=== PATIENT | female | born 1975 | race Hispanic/Latino ===

== ENCOUNTER 2018-07-07 15:57 | Outpatient (CLI) | payer BC ==
--- NOTE | 2018-07-08 11:57 | MMO ---
Bilateral MAMMO Bilat Screen [facility]DI+DEANDRA. CLINICAL HISTORY: Patient is 43 years old and is seen for screening. The patient has no family history of breast cancer. The patient has no personal history of cancer. VIEWS: The views performed were: bilateral craniocaudal with tomosynthesis and bilateral mediolateral oblique with tomosynthesis. MAMMOGRAM FINDINGS: The breasts are heterogeneously dense, which could obscure a lesion on mammography. There are benign appearing calcifications seen in both breasts. There are no suspicious masses, suspicious calcifications, or new areas of architectural distortion. IMPRESSION: THERE IS NO MAMMOGRAPHIC EVIDENCE OF MALIGNANCY. A ROUTINE FOLLOW-UP MAMMOGRAM IN 1 YEAR IS RECOMMENDED. THE RESULTS OF THIS EXAM WERE SENT TO THE PATIENT. ACR BI-RADS Category 2 - Benign finding MAMMOGRAPHY NOTE: 1. A negative mammogram report should not delay a biopsy if a dominant of clinically suspicious mass is present. 2. Approximately 10% to 15% of breast cancers are not detected by mammography. 3. Adenosis and dense breasts may obscure an underlying neoplasm.
== END 2018-07-07 15:58 | disposition home or self-care (01) ==
LOC: BICMAMMO 15:57
PROVIDERS: ATTEND Family Medicine
DX: Z12.31 Encounter for screening mammogram for malignant neoplasm of breast (principal)
CPT/HCPCS: 77063; 77067

== ENCOUNTER 2018-08-24 15:13 | Outpatient (CLI) | payer BC ==
--- NOTE | 2018-08-24 16:11 | BD ---
Exam: DEXA Bone Density 08/24/18 HISTORY: Screening for osteoporosis. Lumbar Spine: BMD (g/cm2) T-SCORE Z-SCORE L1 0.926 -0.6 -0.3 L2 0.977 -0.5 -0.2 L3 0.975 -1.0 -0.7 L4 0.930 -1.2 -0.9 L1-L4 0.951 -0.9 -0.6 Femoral Neck: 0.947 0.9 1.2 Total Femur: 1.066 1.0 1.2 Impression: Normal BMD. POS: TPC
== END 2018-08-24 15:14 | disposition home or self-care (01) ==
LOC: BICMAMMO 15:13
PROVIDERS: ATTEND Family Medicine
DX: Z13.820 Encounter for screening for osteoporosis (principal); E83.52 Hypercalcemia
CPT/HCPCS: 77080

== ENCOUNTER 2019-05-18 07:48 | Inpatient (IN) | payer BC ==
[2019-05-18] MEDS ORDERED: Lorazepam 2 MG/ML VIAL ONE ×2 (07:52→09:58)
[2019-05-18] MEDS ORDERED: Rocuronium Bromide 10 MG/ML (10ML VIAL) ONE (07:52)
[2019-05-18] MEDS ORDERED: Propofol 1,000 MG/100 ML VIAL IV ONE (07:55)
[2019-05-18] MEDS ORDERED: methylPREDNISolone Sod Succ/PF 125 MG/2 ML VIAL ONE (08:06)
[2019-05-18] MEDS ORDERED: Albuterol Sulfate 2.5 mg/3 ml Neb ONE (08:07)
[2019-05-18 08:34] LABS: Mean Corpuscular HGB CONC 32.5 g/dL (32.0-36.0); Mean Corpuscular Hemoglobin 30.3 pg (27.0-31.0); Mean Corpuscular Volume 93.1 fL (78.0-98.0); Mean Platelet Volume 9.5 fL (7.4-10.4); Platelet Count 326 thou/uL (130-400); RBC Distribution Width 12.6 % (11.5-14.5); Red Blood Cell (RBC) Count 5.29 mill/uL (4.20-5.40); White Blood Cell (WBC) Count 11.3 thou/uL (4.8-10.8)
[2019-05-18 08:36] LABS: ALT (SGPT) 23 U/L (8-55); AST (SGOT) 23 U/L (5-34); Alkaline Phosphatase 63 U/L (40-110); Anion Gap 14 mmol/L (10-20); BUN (Urea Nitrogen) 11 mg/dL (7.0-18.7); Bilirubin, Total 0.7 mg/dL (0.2-1.2); Calc. Creatinine Clearance 0 mL/min (70-130); Calcium 11.7 mg/dL (7.8-10.44); Carbon Dioxide 22 mmol/L (22-29); Chloride 107 mmol/L (98-107); Estimated GFR-MDRD 70; Globulin 4.1 g/dL (2.4-3.5); Glucose 103 mg/dL (70-105); Potassium 4.1 mmol/L (3.5-5.1); Protein, Total 9.1 g/dL (6.0-8.3); Sodium 139 mmol/L (136-145)
--- NOTE | 2019-05-18 08:55 | RAD ---
CHEST 1 VIEW: Date: 05/18/2019 HISTORY: Foreign body aspiration. COMPARISON: None. FINDINGS: Endotracheal tube is in position. Heart size is within normal limits. No confluent pneumonia or overt edema, although there are some increased bronchovascular markings, slightly more prominent in the le ft mid upper chest. No evidence for volume loss. No abnormal opaque foreign body seen. IMPRESSION: Endotracheal tube in position. Increased bronchovascular markings, slightly more prominent in the lef t upper chest. Conceivably, this could represent a small patch of aspiration pneumonia or pneumonitis . No confluent lobar pneumonia. No convincing evidence for significantly opaque foreign body. POS: TPC
[2019-05-18 08:57] LABS: Band 4 % (5-11); Eosinophils 9 % (0-10); Lymphocytes 38 % (21-51); MDiff Complete? YES; Metamyelocyte 1 % (0-0); Monocytes 4 % (0-10); Neutrophil 26 % (42-75); Reactive Lymphocytes 18 % (0-10)
[2019-05-18 09:03] LABS: Actual Bicarbonate (HCO3a) 20.9 mEq/L (22-28); Analyzer IN Cardio ER; Base Excess (BEa) -6.4 mEq/L (-2.0 to +3.0); CO2 Tension 48.4 mmHg (35.0-45.0); Calcium, Ionized 1.32 mmol/L (1.12-1.30); Carboxyhemoglobin (COHb) 0.3 gm% (0.0-3.0); Hemoglobin (Hb) 14.6 g/dL (12.0-16.0); O2 Tension (PaO2) 78.7 mmHg (80.0-100.0); Potassium - ABG Lab 2.73 mmol/L (3.70-5.30)
[2019-05-18 09:06] LABS: Puncture Site RRA; pH, Arterial 7.25 (7.35-7.45)
[2019-05-18 09:15] LABS: BHCG - Serum Negative (NEGATIVE); Pregs Control Background? CLEAR/WHITE (CLR/WHITE); Pregs Control Bar Appear? YES (CONTROL BAR)
[2019-05-18 09:29] LABS: Bacteria/HPF None Seen HPF (None Seen); Bilirubin Negative (Negative); Blood, Urine Trace (Negative); Clarity Clear (Clear); Glucose, Urine (Dipstick) 50 mg/dL (Negative); Leukocyte Negative Leu/uL (Negative); Nitrite Negative (Negative); Protein, Urine (Dipstick) 50 mg/dL (Neg-Trace); RBC/HPF 0-3 HPF (0-3); Squamous Epithelial 0-3 HPF (0-3); Urobilinogen Normal mg/dL (Less than 2); WBC/HPF 0-3 HPF (0-3)
[2019-05-18] MEDS ORDERED: Fentanyl 100 MCG/2 ML VIAL ONE (10:06)
[2019-05-18] MEDS ORDERED: Lorazepam 2 MG/ML VIAL SLOW IVP PRN (10:57)
[2019-05-18] MEDS ORDERED: Ondansetron ODT 4 MG TAB PO PRN (10:57)
[2019-05-18] MEDS ORDERED: Acetaminophen 650 MG Suppository PR PRN (10:57)
[2019-05-18] MEDS ORDERED: Labetalol HCl 100 MG/20 ML VIAL SLOW IVP PRN (10:57)
[2019-05-18] MEDS ORDERED: Ondansetron PF 4 MG/2 ML Vial IVP PRN (10:57)
[2019-05-18] MEDS ORDERED: Propofol 1,000 MG/100 ML VIAL IV PRN (11:08)
[2019-05-18] MEDS ORDERED: Ventilator Sedation Protocol 1 EACH FS ONE (11:11)
[2019-05-18] MEDS ORDERED: Fentanyl BOLUS 250 ML IVPB PRN (11:28)
[2019-05-18] MEDS ORDERED: fentaNYL Citrate/PF 2,000 MCG in Sodium Chloride 0.9% 60 ML IV SCH (11:28)
[2019-05-18] MEDS ORDERED: Morphine 2 MG/ML SYRINGE SLOW IVP PRN (11:28)
[2019-05-18] MEDS ORDERED: Propofol BOLUS 1,000 MG/100 ML VIAL IV PRN (11:28)
[2019-05-18] MEDS: Famotidine/PF 20 mg/2ml Vial SLOW IVP SCH ×2 (11:54→21:23)
[2019-05-18] MEDS: Sodium Chloride 0.9% 1,000 ML IV SCH ×2 (11:54→17:15)
[2019-05-18] MEDS: diphenhydrAMINE 50 MG/ML VIAL IVP SCH ×3 (11:54→23:53)
[2019-05-18] MEDS ORDERED: methylPREDNISolone Sod Succ 40 MG VIAL IVP SCH (12:00)
--- NOTE | 2019-05-18 12:21 | HP ---
PRIMARY CARE PROVIDER: [facility]. CHIEF COMPLAINT: Choking and difficulty breathing. HISTORY OF PRESENT ILLNESS: This is a 44-year-old female, who presented to [facility] Emergency Room in transport by EMS personnel after the patient was noted choking in her home by her . The noted his making choking noises and grabbing her throat after apparently eating a clove of garlic this morning. The patient normally eats garlic cloves in the morning as well as having coffee when she began to experiencing the coughing and choking episode. The attempted a Heimlich maneuver and states he did not notice any foreign body expelled. The patient became increasingly short of breath, at which point, the patient notified EMS personnel. The patient was transported to the emergency room and noted gasping, red in the face with hypoxia. Due to impending respiratory failure, the patient was intubated in the emergency room. The patient underwent emergent bronchoscopy attempting to identify any foreign body, however, no specific foreign body was noted per discussion with the emergency room attending. Pulmonology was consulted and a second bronchoscopy was performed without evidence of obstructive process identified. The patient received IV lorazepam, Solu-Medrol in addition to fentanyl, intravenous normal saline, and DuoNeb. The patient was initiated on Diprivan infusion and maintained on mechanical ventilation. The reports no travel history, recent illness, fever, exposure history, or chemical use. There is no reported history of tobacco use, illicit drug use. Family members with similar symptoms or previous allergic reactions. The patient does not take any chronic medication per the report. PAST MEDICAL HISTORY: Reviewed and negative. PAST SURGICAL HISTORY: Reviewed and negative. CURRENT MEDICATIONS: Reviewed and negative. ALLERGIES: NO KNOWN DRUG ALLERGIES. FAMILY HISTORY: No inheritable diseases per family report. SOCIAL HISTORY: , residing in [place], [place]. Accompanied by her and daughter in the emergency room. No alcohol, tobacco, or illicit drug use. Functional of all activities of daily living. REVIEW OF SYSTEMS: CONSTITUTIONAL: Negative for weight loss or gain, ability to conduct usual activities. SKIN: Negative for rash, itching. EYES: Negative for double vision, pain. ENT/MOUTH: Negative for nose bleeding, neck stiffness, pain, tenderness. CARDIOVASCULAR: Negative for palpitations, dyspnea on exertion, orthopnea. RESPIRATORY: Negative for shortness of breath, wheezing, cough, hemoptysis, fever or night sweats. GASTROINTESTINAL: Negative for poor appetite, abdominal pain, heartburn, nausea, vomiting, constipation, or diarrhea. GENITOURINARY: Negative for urgency, frequency, dysuria, nocturia. MUSCULOSKELETAL: Negative for pain, swelling. NEUROLOGIC/PSYCHIATRIC: Negative for anxiety, depression. ALLERGY/IMMUNOLOGIC: Negative for skin rash, bleeding tendency. Otherwise, negative except as stated per HPI. PHYSICAL EXAMINATION: VITAL SIGNS: On admission, blood pressure 191/141, pulse 167, respiratory rate 15, temperature 98.9 degrees Fahrenheit, and O2 saturation 100% on mechanical ventilator. GENERAL APPEARANCE: This is a 44-year-old female, agitated, on current mechanical ventilation in the emergency room. HEENT: Pupils are reactive, equal, and reactive to light and accommodation. Extraocular muscles intact. No scleral icterus. No conjunctival injection. Nares patent. OP with ET tube in place. Edema noted of the lips. NECK: Supple. No cervical adenopathy. No thyromegaly. No carotid bruits. No JVD noted. Cervical spine with full active and passive range of motion. No meningeal signs noted. CHEST: Diminished breath sounds in the bases with occasional expiratory wheeze. CARDIOVASCULAR: S1 and S2 with tachycardia. No murmur, rub, or gallop appreciated. ABDOMEN: Rounded, soft, nontender, and nondistended. Bowel sounds are positive in all 4 quadrants. There is no hepatosplenomegaly. No abdominal bruits. No rebound or guarding appreciated. EXTREMITIES: Warm and dry with fair turgor. No clubbing, cyanosis, or asymmetric edema appreciated. Pulses palpable distally at the dorsalis pedis, posterior tibial, and popliteal arteries bilaterally. Capillary refill less than 2 seconds. NEUROLOGIC: Agitated with current sedation on mechanical ventilation. Moving all extremities randomly. GENITOURINARY: Smith catheter in place with clear alfredo urine. PERTINENT LABORATORY AND X-RAY FINDINGS: Basic metabolic profile shows a calcium of 11.7. Lactic acid level 2.6. LFTs within normal limits. Troponin I negative x1. Albumin 5.0. Serum beta-hCG negative. CBC showed a white blood cell count of 11.3, hemoglobin 16, hematocrit 49.2, and platelet count 326 with 26% neutrophils. ABG dated 05/18/2019 at 8:56 a.m. showed a pH of 7.25, pCO2 of 48.4, pO2 of 78.7, bicarb of 20.9, and O2 saturation 94% on 27% FiO2. Urinalysis; positive for protein, trace ketones. Portable chest x-ray dated 05/18/2019, showed prominent bronchovascular markings. ET tube in appropriate positioning. EKG dated 05/18/2019, by my interpretation shows sinus tachycardia with heart rates in the 150s. Normal R-wave progression noted in the precordial leads. Normal axis. No acute ST-T wave changes noted. ASSESSMENT AND PLAN: 1. Acute hypoxic hypercapnic respiratory failure. The patient intubated in the emergency room and initiated on mechanical ventilation with SIMV. We will continue mechanical ventilation for pulmonary support. Consult Pulmonology/Critical Care Service for vent management. Suspect secondarily to #2. See #2 below for management. Repeat portable chest x-ray and ABG in the a.m. 2. Allergic reaction. Question of anaphylaxis. We will continue Solu-Medrol 60 mg IV q.6 hours with additional Pepcid 20 mg IV b.i.d. and Benadryl 50 mg IV q.6 hours. Unclear etiology of presentation. No evidence of foreign body in upper airway by bronchoscopy. 3. Hypercalcemia. We will continue intravenous fluids with normal saline. Repeat calcium level in the a.m. 4. Lactic acidosis. Secondarily to acute hypoxic hypercapnic respiratory failure. We will continue IV fluids as well as ventilatory support. No evidence to suggest underlying infectious process. 5. Prophylaxis. SCDs while in bed. Pepcid 20 mg IV b.i.d. CCU ventilator sedation protocol. 6. Code status is full. Surrogate medical decision maker is the patient's spouse. Total critical care time, 45 minutes. Job ID: [id number]
[2019-05-18 12:43] VITALS: BMI 26.2
[2019-05-18 13:07] LABS: Lactic Acid 7.4 mmol/L (0.5-2.2)
--- NOTE | 2019-05-18 13:15 | CON ---
DATE OF CONSULTATION: SERVICE: Pulmonary Medicine. REASON FOR CONSULTATION: ICU patient. HISTORY OF PRESENT ILLNESS: The patient is a 44-year-old female with past medical history significant for essentially nothing. She was in her usual state of health when she started having increasing difficulty with breathing. There was concern that she had aspirated a piece of garlic. She presented to the emergency department and because she was not able to protect her airway and was struggling and continuously coughing, she was electively intubated. We are hopeful to find a foreign body in her lung, but shortly after intubation, she started having upper and lower lip swelling, hemodynamic instability, and hives. She was given dose of steroids. There was no difficulty in ventilating her at this point, so epinephrine was withheld. She was given a bolus of fluids, and she slowly recovered. She cannot provide me any additional elements of the history at this point and she is currently intubated, sedated, and paralyzed. PAST MEDICAL HISTORY: None. PAST SURGICAL HISTORY: None. ALLERGIES: NO KNOWN DRUG ALLERGIES. MEDICATIONS: List of her inpatient medications was reviewed. No specific updates were made at this time. FAMILY HISTORY: Noncontributory. SOCIAL HISTORY: She lives in [place], [place]. She is . She has no exposure to chemicals, dust, asbestos, or tuberculosis. Her family denies any alcohol, tobacco, or illicit drug use. REVIEW OF SYSTEMS: Cannot be obtained as the patient is currently intubated, sedated, and paralyzed. PHYSICAL EXAMINATION: VITAL SIGNS: Afebrile, pulse 121, blood pressure 123/81, and respirations 17 on 31% FiO2 and a PEEP of 5. GENERAL: The patient is intubated and sedated. HEENT: Normocephalic and atraumatic. Sclerae are white. Conjunctivae are pink. Oral mucosa is moist without lesions. LUNGS: Decent air entry. No prolonged expiratory phase or wheezing is appreciated. HEART: Normal rate, regular. ABDOMEN: Soft, nontender, and nondistended. Bowel sounds are positive. MUSCULOSKELETAL: No cyanosis or clubbing. No pitting in bilateral lower extremities. NEUROLOGIC: Grossly nonfocal. LABORATORY DATA: WBC 11.3, hemoglobin 16.0, platelets 326,000, neutrophils are low and band count is 4%. PH of 7.25, pCO2 of 48, and pO2 of 78. Basic metabolic profile and liver function studies are otherwise unremarkable. Calcium 11.7. Troponin is below the assay limit of normal. test is negative and lactate is 2.6. Urinalysis is negative. IMAGING DATA: Chest x-ray demonstrates possible inflammatory patch in left upper lobe. Endotracheal tube is in good position. No other lines are present. No other overt consolidating changes or effusions are appreciated. ASSESSMENT: 1. Acute respiratory failure. 2. Angioedema with anaphylaxis. 3. Community-acquired pneumonia, possible. DISCUSSION AND PLAN: Multiple adjustments have been made to the ventilator. We will put her in the ICU and withhold sedation. With this dose of steroid, her hives and lip swelling have already started to improve dramatically. As such, if she meets criteria in 2 hours, we will go ahead and deflate her balloon on the endotracheal tube. If she demonstrates wonderful cuff leak, we will likely proceed with extubation. I did an emergent bronchoscopy at bedside. I did not identify any foreign body and all 10 segments of the lung was clearly identified. The area in the left upper lobe was of no concern. She had significant secretions, but they were extremely thin. CRITICAL CARE TIME: 30 minutes. Job ID: [id number] MTDD
[2019-05-18] MEDS ORDERED: Iopamidol-370 76% 500 ML 1 ML ONE (13:20)
[2019-05-18] MEDS: Lorazepam 2 MG/ML VIAL SLOW IVP PRN ×2 (13:29→22:30)
[2019-05-18 16:02] LABS: Amphetamine Not Detected (NotDetected); Barbiturates Screen Not Detected (NotDetected); Benzodiazepine Screen Not Detected (NotDetected); Cocaine Metabolite Screen Not Detected (NotDetected); Medtox Control Line Valid? VALID (VALID); Medtox Reader # READER 4; Methadone Not Detected (NotDetected); Methamphetamine Not Detected (NotDetected); Opiate Screen Not Detected (NotDetected); Oxycodone Screen Not Detected (NotDetected); Phencyclidine (PCP) Not Detected (NotDetected); THC/Cannabinoid Screen Not Detected (NotDetected); Tricyclic Screen Not Detected (NotDetected)
[2019-05-18] MEDS: predniSONE 20 MG TAB PO SCH (16:45)
[2019-05-18] MEDS: Propofol 1,000 MG/100 ML VIAL IV PRN ×2 (16:45→21:34)
[2019-05-18] MEDS ORDERED: Diltiazem 125 MG in Sodium Chloride 0.9% 100 ML IVPB SCH (17:30)
[2019-05-18] MEDS ORDERED: Sodium Chloride 0.9% 1,000 ML IV SCH ×2 (17:30→21:15)
[2019-05-18 18:10] LABS: ALT (SGPT) 20 U/L (8-55); AST (SGOT) 18 U/L (5-34); Albumin 4.1 g/dL (3.5-5.0); Alkaline Phosphatase 48 U/L (40-110); Bilirubin, Direct 0.2 mg/dL (0.1-0.3); Bilirubin, Total 0.3 mg/dL (0.2-1.2); Lipase 23 U/L (8-78); Protein, Total 7.6 g/dL (6.0-8.3)
--- NOTE | 2019-05-18 18:24 | CT ---
CTA Angio Chest W WO Con History: Elevated d-dimer. Comparison: Chest radiograph same day Findings: CT angiogram chest performed after the intravenous ministration of contrast. 3-D rendering provided. Evaluation for distal embolism is limited due to the delayed phase of contrast. No proximal segmental pulmonary arterial filling defect is appreciated No pericardial effusion. An enteric tube is in place with tip near the gastric fundus. Endotracheal t ube tip is above the paz. Upper abdomen is relatively unremarkable. Mild atelectasis in the lung bases. No pneumothorax. No effusion. No confluent airspace consolidation . Thoracic spine is intact. The sternum and manubrium are intact. Subtle motion artifact of the midster num. No displaced rib fracture. Impression: 1. No pulmonary embolus and given the delayed phase of contrast. 2. Endotracheal tube tip above the paz. 3. Enteric tube tip in the gastric fundus. 4. Atelectatic changes in the lung bases.
--- NOTE | 2019-05-18 18:28 | CT ---
CT Abdomen Pelvis W Con History: Increasing lactic acid. Comparison: None Findings: Spleen, pancreas, liver, gallbladder are unremarkable. Kidneys have normal symmetric enhanc ement. No hydronephrosis. No dilated loops of large or small bowel. No free intraperitoneal gas or fluid. The aortoiliac contour is nonaneurysmal. Adrenal glands are unremarkable. No retroperitoneal periaort ic adenopathy. Left adnexal hemorrhagic cyst. Celiac trunk and superior mesenteric arteries are patent. The inferior mesenteric artery is patent. Mild diastases recti. Lumbar spine is unremarkable. Heterogeneous enhancement of the uterus. Impression: No acute inflammatory process within the abdomen or pelvis.
[2019-05-18] MEDS: metroNIDAZOLE 500 MG in Premix Bag 1 BAG IVPB SCH (23:53)
[2019-05-19 03:55] LABS: Band 27 % (5-11); Hemoglobin 12.4 g/dL (12.0-16.0); Lymphocytes 5 % (21-51); MDiff Complete? YES; Mean Corpuscular HGB CONC 32.8 g/dL (32.0-36.0); Mean Corpuscular Hemoglobin 30.3 pg (27.0-31.0); Mean Corpuscular Volume 92.6 fL (78.0-98.0); Mean Platelet Volume 9.1 fL (7.4-10.4); Monocytes 2 % (0-10); Neutrophil 66 % (42-75); Platelet Count 280 thou/uL (130-400); Platelet Morphology Comment Appears Adequate; RBC Distribution Width 12.5 % (11.5-14.5); Red Blood Cell (RBC) Count 4.08 mill/uL (4.20-5.40); White Blood Cell (WBC) Count 18.3 thou/uL (4.8-10.8)
[2019-05-19 04:02] LABS: Lactic Acid 1.1 mmol/L (0.5-2.2)
[2019-05-19 04:14] LABS: ALT (SGPT) 16 U/L (8-55); AST (SGOT) 16 U/L (5-34); Albumin 3.7 g/dL (3.5-5.0); Alkaline Phosphatase 42 U/L (40-110); Anion Gap 8 mmol/L (10-20); BUN (Urea Nitrogen) 7 mg/dL (7.0-18.7); Bilirubin, Total 0.4 mg/dL (0.2-1.2); Calc. Creatinine Clearance 118 mL/min (70-130); Calcium 9.6 mg/dL (7.8-10.44); Carbon Dioxide 18 mmol/L (22-29); Chloride 114 mmol/L (98-107); Estimated GFR-MDRD Greater than 90; Glucose 141 mg/dL (70-105); Protein, Total 6.7 g/dL (6.0-8.3); Sodium 136 mmol/L (136-145)
[2019-05-19] MEDS: Propofol 1,000 MG/100 ML VIAL IV PRN (05:11)
[2019-05-19] MEDS: diphenhydrAMINE 50 MG/ML VIAL IVP SCH ×2 (05:11→10:52)
[2019-05-19] MEDS: metroNIDAZOLE 500 MG in Premix Bag 1 BAG IVPB SCH (05:20)
[2019-05-19] MEDS: Sodium Chloride 0.9% 1,000 ML IV SCH (05:23)
[2019-05-19] MEDS: predniSONE 20 MG TAB PO SCH (08:05)
[2019-05-19] MEDS: Famotidine/PF 20 mg/2ml Vial SLOW IVP SCH ×2 (08:06→21:54)
[2019-05-19] MEDS ORDERED: Amoxicillin/Potassium Clav 875 MG TAB PO SCH (10:00)
--- NOTE | 2019-05-19 10:11 | PRG ---
DATE OF SERVICE: 05/19/2019 SERVICE: Pulmonary Medicine. INTERVAL HISTORY: Yesterday, the patient's lactate continued to trend upward despite the fact that she had normal blood pressure. She remains significantly tachycardic. As a result, we ended up going down for a CT of the chest, abdomen, and pelvis looking for possible nidus of infection or inflammatory process. None was discovered. She ended up getting an additional liter or 2 of fluid. With this, her heart rate settled down. This morning, she cleared her lactate. She is cool, calm and collected, and has no specific complaints on mechanical ventilator. There were no events overnight otherwise. PHYSICAL EXAMINATION: VITAL SIGNS: Afebrile, pulse 86, blood pressure 114/74, respirations 11, saturation 96% on 21% FiO2 and PEEP of 5. GENERAL: The patient is intubated. She is under the influence of a little bit of sedation. HEENT: Normocephalic and atraumatic. Sclerae white. Conjunctivae pink. Oral mucosa is moist without lesions. LUNGS: Wonderful air entry with no prolonged expiratory phase or wheezing present. HEART: Normal rate. Regular. ABDOMEN: Soft, nontender, and nondistended. Bowel sounds are positive. MUSCULOSKELETAL: No cyanosis or clubbing. No pitting in the bilateral lower extremities. NEUROLOGIC: Grossly nonfocal. LABORATORY DATA: WBC 18.3, hemoglobin 12.4, and platelets 280,000. Band count has jumped to 25%. D-dimer 0.57. PH of 7.25, pCO2 of 48, and pO2 of 78. Basic metabolic profile and liver function studies are unremarkable. Lactate is finally cleared to 1.1. Urinalysis is negative. Urine drug screen is unremarkable. Blood cultures x2 are negative. IMAGING: CT of the chest, abdomen, and pelvis was without any obvious infiltrates or problems. ASSESSMENT: 1. Acute hypoxic respiratory failure, resolved. 2. Angioedema with anaphylaxis, resolved. 3. Community-acquired pneumonia, possible. DISCUSSION AND PLAN: The patient will be converted over to Augmentin. She will complete a 5-day course. We will put her on a spontaneous breathing trial, and if she meets criteria, extubation will be considered. This afternoon, if she is doing well, she can be considered for transition to the floor. When she lands on the floor, she will have no further requirements for inpatient Pulmonary/Critical Care opinion, and I will sign off. Please call with additional questions or concerns through time. Job ID: [id number]
--- NOTE | 2019-05-19 13:56 | PDOC.HOSPP ---
- Subjective Encounter Date: 05/19/19 Encounter Time: 13:45 Subjective: f/u s/p resp failure with mech ventilation now extubated. Allergic reaction suspected but unclear exact etiology. Feels better overall. - Objective Vital Signs & Weight: Vital Signs (12 hours) Temp Pulse Resp BP BP Pulse Ox 05/19/19 12:03 99 F 72 18 119/74 98 05/19/19 08:00 11 L 05/19/19 07:24 96 05/19/19 07:14 71 05/19/19 07:00 99.4 F 05/19/19 06:00 12 05/19/19 04:00 99.5 F 13 05/19/19 02:22 81 119/76 05/19/19 02:00 13 Weight Admit Weight 153 lb 0.013 oz Weight 153 lb 0.013 oz Most Recent Monitor Data Heart Rate from ECG 80 NIBP 115/81 NIBP BP-Mean 92 Respiration from ECG 19 SpO2 97 I&O: 05/18/19 05/19/19 05/20/19 06:59 06:59 06:59 Intake Total 4039 284.2 Output Total 3260 385 Balance 779 -100.8 Result Diagrams: 05/19/19 03:02 05/19/19 03:02 Additional Labs: Microbiology 05/18/19 19:23 Venous blood - Left Arm Blood Culture - Preliminary Specimen has been received and culture in progress. No Growth to date. 05/18/19 19:20 Venous blood - Right Hand Blood Culture - Preliminary Specimen has been received and culture in progress. No Growth to date. 05/18/19 18:05 Urine ferreira catheter Urine Culture - Preliminary NO GROWTH AT 24 HOURS Laboratory Tests 05/18/19 05/18/19 05/18/19 07:54 09:10 12:13 WBC 11.3 H Band Neuts % (Manual) 4 L Lactic Acid 2.6 H 7.4 H* Lipase 05/18/19 05/18/19 05/19/19 15:54 17:36 03:02 WBC Band Neuts % (Manual) Lactic Acid 8.0 H* 1.1 Lipase 23 05/19/19 03:02 WBC Band Neuts % (Manual) 27 H Lactic Acid Lipase Radiology Reviewed by me: Yes (CTA chest -neg; CT abd/pel - no acute process) Hospitalist ROS - Medication Medications: Active Medications Generic Name Dose Route Start Last Admin Trade Name Evert PRN Reason Stop Dose Admin Diphenhydramine HCl 50 mg 05/18/19 11:00 05/19/19 10:52 Benadryl IVP 50 mg Q6H DOMO Administration Famotidine 20 mg 05/18/19 11:00 05/19/19 08:06 Pepcid SLOW IVP 20 mg Q12HR DOMO Administration Sodium Chloride 1,000 mls @ 0 mls/hr 05/18/19 11:00 05/19/19 05:23 Normal Saline 0.9% IV 1,000 mls .Q0M DOMO Administration KVO Sodium Chloride 10 ml 05/18/19 21:00 05/19/19 08:06 Flush - Normal Saline IVF 10 ml Q12HR DOMO Administration - Exam General Appearance: NAD Eye: PERRL, anicteric sclera ENT: normocephalic atraumatic, no oropharyngeal lesions Neck: supple, symmetric, no JVD, no thyromegaly Heart: RRR, no murmur, no gallops, no rubs, normal peripheral pulses Respiratory: CTAB, no wheezes, no rales, no ronchi Gastrointestinal: soft, non-tender, non-distended, normal bowel sounds Extremities: no cyanosis, no clubbing, no edema Skin: normal turgor, no lesions Neurological: cranial nerve grossly intact, no new deficit Musculoskeletal: normal tone, normal strength, no muscle wasting Psychiatric: normal affect, A&O x 3 Hosp A/P (1) Acute respiratory failure with hypoxia and hypercapnia Code(s): J96.01 - ACUTE RESPIRATORY FAILURE WITH HYPOXIA; J96.02 - ACUTE RESPIRATORY FAILURE WITH HYPERCAPNIA Status: Acute Plan: s/p mech ventilation, general supportive mgmt, continue to monitor clinically (2) Allergic reaction Code(s): T78.40XA - ALLERGY, UNSPECIFIED, INITIAL ENCOUNTER Status: Acute Plan: Suspected but no definitive confirmation, continue Benadryl/Pepcid (3) Lactic acidosis Code(s): E87.2 - ACIDOSIS Status: Acute Plan: Likely due to resp failure and allergic rxn, resolved (4) Hypercalcemia Code(s): E83.52 - HYPERCALCEMIA Status: Acute Plan: Resolved, continue IVF's - Plan plan discussed w/ family, continue antibiotics, out of bed/ambulate, DVT proph w /SCDs Stable overall Continue Augmentin empirically Continue Benadryl/Pepcid Continue Prednisone Likely home in am
[2019-05-19] MEDS: diphenhydrAMINE 25 MG CAP PO SCH ×2 (16:50→23:49)
[2019-05-19] MEDS: Amoxicillin/Potassium Clav 875 MG TAB PO SCH (21:53)
[2019-05-20] MEDS: diphenhydrAMINE 25 MG CAP PO SCH ×2 (05:13→11:53)
[2019-05-20 07:02] VITALS: BP 117/72
[2019-05-20] MEDS ORDERED: predniSONE 20 MG TAB PO SCH (09:00)
[2019-05-20] MEDS: Amoxicillin/Potassium Clav 875 MG TAB PO SCH (09:01)
[2019-05-20] MEDS: Famotidine/PF 20 mg/2ml Vial SLOW IVP SCH (09:02)
[2019-05-20 10:23] LABS: #Basophils 0.1 thou/uL (0.0-0.2); #Lymphocytes 4.2 thou/uL (1.20-3.40); #Monocytes 0.8 thou/uL (0.11-0.59); #Neutrophils 8.5 thou/uL (1.40-6.50); %Basophils 0.7 % (0.0-1.0); %Eosinophils 0.2 % (0.0-10.0); %Lymphocytes 30.8 % (21.0-51.0); %Monocytes 5.5 % (0.0-10.0); %Neutrophils 62.8 % (42.0-75.0); Hemoglobin 12.9 g/dL (12.0-16.0); Mean Corpuscular HGB CONC 33.5 g/dL (32.0-36.0); Mean Corpuscular Hemoglobin 31.3 pg (27.0-31.0); Mean Corpuscular Volume 93.5 fL (78.0-98.0); Platelet Count 286 thou/uL (130-400); RBC Distribution Width 12.7 % (11.5-14.5); Red Blood Cell (RBC) Count 4.13 mill/uL (4.20-5.40); White Blood Cell (WBC) Count 13.5 thou/uL (4.8-10.8)
[2019-05-20 14:50] VITALS: TEMP 98.3
--- NOTE | 2019-05-21 03:54 | DIS ---
DATE OF ADMISSION: 05/18/2019 DATE OF DISCHARGE: 05/20/2019 DISCHARGE DIAGNOSES: 1. Acute respiratory failure with hypoxia and hypercapnia, status post mechanical ventilation. 2. Allergic reaction suspected as an initial encounter. No precipitating factors identified during this hospitalization. 3. Hypercalcemia. 4. Angioedema with anaphylaxis, resolved. DISCHARGE MEDICATIONS: 1. Augmentin 875 mg twice a day for 5 days. 2. Continue with her home medication regimen. She does not have any other home regimen except Tylenol as necessary. PHYSICAL EXAMINATION: VITAL SIGNS: On the day of discharge, her temperature is 98, pulse 70, blood pressure 104/64. GENERAL: Resting well. She is having her meals. Quite anxious to go home. Her is at bedside. HEART: Regular rate and rhythm without murmurs, rubs, or gallops. LUNGS: Clear to auscultation bilaterally without wheezing, rales, or rhonchi. ABDOMEN: Soft, nontender, nondistended. Good bowel sounds. EXTREMITIES: Without any pitting edema. LABORATORY DATA: Her morning CBC showed a white count of 18.3. She is on prednisone. Repeat labs showed 13.5. She is stable to be discharged. HOSPITAL COURSE: A 44-year-old female without significant past medical history, presented with difficulty with breathing. It appears she had aspirated a piece of garlic. She had a continuous cough and not able to protect her airway in the ER. She was selectively intubated. Shortly after the intubation, noted to have upper and lower lip swelling, hemodynamic instability, and hives. She received a dose of steroids and followed in the ICU with a [facility]. After ICU care, she is transferred to the medical floor and improved clinically to a level strong enough to go home. She will be completing empiric antibiotic of Augmentin of 5-day duration. She did have some emergent bronchoscopy that did not reveal any foreign body and all 10 segments of the lungs were clearly identified. Again, the etiology behind the angioedema is not very clear. She is not on any home medications except tylenol. She is stable to be discharged. DISCHARGE INSTRUCTIONS: Activity as tolerated, regular diet. Follow up with the primary care physician in 1 week. Discharge time took over 30 minutes. Job ID: [id number] MTDD
== END 2019-05-20 15:29 | disposition home or self-care (01) | DRG 208 ==
LOC: ERS 07:48 → CCU 08:57 → T4-A 05-19 12:21
PROVIDERS: ADMIT Family Medicine; ATTEND Family Medicine
PROC: 5A1935Z Respiratory Ventilation, Less than 24 Consecutive Hours (ICD-10-PCS; principal; 2019-05-18)
PROC: 0BH18EZ Insertion of Endotracheal Airway into Trachea, Via Natural or Artificial Opening Endoscopic (ICD-10-PCS; 2019-05-18)
PROC: 0BJ08ZZ Inspection of Tracheobronchial Tree, Via Natural or Artificial Opening Endoscopic (ICD-10-PCS; 2019-05-18)
DX: J96.01 Acute respiratory failure with hypoxia (principal); E87.2 Acidosis; J96.02 Acute respiratory failure with hypercapnia; E83.52 Hypercalcemia; T78.3XXA Angioneurotic edema, initial encounter; T78.40XA Allergy, unspecified, initial encounter; Z78.1 Physical restraint status
CPT/HCPCS: 31500; 36415; 51702; 71045; 71275; 74177; 80053; 80306; 81003; 81015; 82150; 82805; 83605; 83690; 84484; 84703; 85007; 85025; 85027; 85379; 87040; 87086; 89220; 93005; 94002; 94003; 94640; 94760; 96365; 96366; 96375; 96376; 99292; J1200; J1956; J2060; J2270; J2704; J2920; J2930; J3010; J3490; J7512; J7611; J7620; Q0163; Q9967; S0028